=== PATIENT | male | born 1965 | race Caucasian/White ===

== ENCOUNTER 2019-05-20 14:05 | Emergency (ER) | payer MEDICAID, OTHER ==
[2019-05-20] MEDS ORDERED: Lidocaine 1% 30 ML SDV INJECT ONE (14:16)
[2019-05-20] MEDS ORDERED: Diphtheria,Pertussis(Acell),Tetanus Vaccine 0.5 ML Syringe IM ONE (14:32)
--- NOTE | 2019-05-21 18:10 | EDM.PDOC ---
ED HPI GENERAL MEDICAL PROBLEM - General Chief Complaint: Laceration Stated Complaint: CUT ON LT KNEE CAP Time Seen by Provider: 05/20/19 14:15 Source of Information: Reports: Patient History Limitations: Reports: No Limitations - History of Present Illness INITIAL COMMENTS - FREE TEXT/NARRATIVE: Pt. presents to ER with complaints of laceration to R anteriolateral knee. He states that he knelt on a razor knife. He states that this happened just prior to arrival to ER. He states that he is not sure when his tetanus was last updated. Denies any numbness/tingling in the distal portion of the extremity. Onset Date: 05/20/19 Location: Reports: Lower Extremity, Right Quality: Reports: Sharp, Stabbing Severity: Moderate Right Knee Pain Score (Numeric/FACES): 2 - Related Data Allergies Allergy/AdvReac Type Severity Reaction Status Date / Time No Known Allergies Allergy Verified 05/20/19 14:16 Home Meds: Home Meds . [No Known Home Meds] 05/20/19 [History] Past Medical History - Past Surgical History GI Surgical History: Reports: Hernia, Inguinal Social & Family History - Tobacco Use Smoking Status *Q: Unknown Ever Smoked - Alcohol Use Days Per Week of Alcohol Use: 7 Number of Drinks Per Day: 3 Total Drinks Per Week: 21 - Recreational Drug Use Recreational Drug Use: Yes Drug Use in Last 12 Months: No ED ROS GENERAL - Review of Systems Review Of Systems: See Below Constitutional: Reports: No Symptoms HEENT: Reports: No Symptoms Respiratory: Reports: No Symptoms Cardiovascular: Reports: No Symptoms Endocrine: Reports: No Symptoms GI/Abdominal: Reports: No Symptoms : Reports: No Symptoms Musculoskeletal: Reports: Other (4 cm laceration to knee on R side) Skin: Reports: No Symptoms Neurological: Reports: No Symptoms Psychiatric: Reports: No Symptoms Hematologic/Lymphatic: Reports: No Symptoms Immunologic: Reports: No Symptoms ED EXAM, SKIN/RASH Exam: See Below Exam Limited By: No Limitations General Appearance: Alert, WD/WN, No Apparent Distress Extremities: Other (4 cm laceration to anterior lateral R knee. Does not extend into deeper structures of the knee. CMS intact.ROM is WNL.) Skin: Warm, Dry, Other (see above) ED SKIN PROCEDURES - Laceration/Wound Repair Right Anterior Lateral Appearance: Subcutaneous Distal NVT: Neuro & Vascular Intact, No Tendon Injury Anesthetic Type: Local Local Anesthesia - Lidocaine (Xylocaine): 1% Plain Local Anesthetic Volume: 4cc Skin Prep: Chlorhexidine (Hibiciens), Saline Saline Irrigation (cc's): 4 Exploration/Debridement/Repair: Wound Explored, Explored to Base, Minimal Debridement, No Foreign Material Found, Wound Margins Revised Closed with: Sutures Lac/Wound length In cm: 4 Suture Size: 3-0 # of Sutures: 4 Course - Vital Signs Last Recorded V/S: Last Vital Signs Temp 36.5 C 05/20/19 14:05 Pulse 71 05/20/19 14:05 Resp 16 05/20/19 14:05 BP 135/92 H 05/20/19 14:05 Pulse Ox 98 05/20/19 14:05 - Orders/Labs/Meds Meds: Medications Discontinued Medications Generic Name Dose Route Start Last Admin Trade Name Freq PRN Reason Stop Dose Admin Diphtheria/Tetanus/Acell Pertussis 0.5 ml 05/20/19 14:32 05/20/19 14:39 Adacel IM 05/20/19 14:33 0.5 ml .ONCE ONE Administration Lidocaine HCl 30 ml 05/20/19 14:16 05/20/19 14:20 Xylocaine-Mpf 1% INJECT 05/20/19 14:17 30 ml ONETIME ONE Administration Departure - Departure Time of Disposition: 14:55 Disposition: Home, Self-Care 01 Condition: Good Clinical Impression: Laceration - Discharge Information Instructions: Laceration Care, Adult Referrals: PCP,None [Primary Care Provider] - Forms: ED Department Discharge Additional Instructions: Keep dry for 48 hours. Off work until Thursday. I do not want you bending your knee much this weekend and into next week. Keep the area open to air as much as possible. Cover if you anticipate the area getting dirty. Return if there is any redness, swelling, or discharge from the area. Tylenol and ibuprofen for discomfort. - Assessment/Plan Plan: Keep dry for 48 hours. Off work until Thursday. I do not want you bending your knee much this weekend and into next week. Keep the area open to air as much as possible. Cover if you anticipate the area getting dirty. Return if there is any redness, swelling, or discharge from the area. Tylenol and ibuprofen for discomfort.
== END 2019-05-20 14:55 | disposition home or self-care (01) ==
LOC: VM.ED 14:05
DX: S81.011A Laceration without foreign body, right knee, initial encounter (principal); Z23 Encounter for immunization; W26.0XXA Contact with knife, initial encounter
CPT/HCPCS: 12002; 90471; 90715; 99283; J2001